=== PATIENT | female | born 1985 | race Caucasian/White ===

== ENCOUNTER 2019-09-05 11:32 | Outpatient (CLI) | payer OTHER ==
--- NOTE | 2019-09-05 14:47 | MRI ---
MRI RIGHT KNEE PERFORMED WITHOUT CONTRAST ENHANCEMENT: Date: 09/05/2019 HISTORY: Medial and central knee pain after injury playing basketball a week ago. History of three previous kn ee surgeries. FINDINGS: The anterior, as well as posterior cruciate ligaments are intact. There is some increased signal fischer ge within the free edge of the body of the lateral meniscus. This could represent a small free edge t ear or possibly be the sequelae of previous meniscectomy change. On the medial side, there is a small free edge tear of the posterior horn of the medial meniscus, adama se to the meniscal root. Again, it is possible if the patient has had meniscectomy change that this i s postoperative change, but the free edge is mildly blunted in this region. The medial, as well as lateral collateral ligaments and iliotibial band regions are unremarkable. Patellar articular cartilage is intact. The medial and lateral patellar retinaculum, and quadriceps t endon are normal. There is some patellar tendinosis of the patella at the inferior pole of the patell a. There are postoperative changes with hardware placed at the level of the tibial tubercle. IMPRESSION: 1. Some increased signal change within the body of the lateral meniscus along the free edge. This co uld represent a small tear, somewhat atypical in appearance for a tear and my just represent previous surgical change. 2. Slightly blunted appearance to the posterior horn of the medial meniscus near the meniscal root. Again, this could be related to previous meniscal surgery or possibly a small free edge tear. 3. Patellar tendinosis. POS: ELISABETH
== END 2019-09-05 11:33 | disposition home or self-care (01) ==
LOC: BICMRI 11:32
PROVIDERS: ATTEND Orthopaedic Surgery
DX: M23.91 Unspecified internal derangement of right knee (principal); M67.961 Unspecified disorder of synovium and tendon, right lower leg

== ENCOUNTER 2019-09-30 15:41 | Outpatient (CLI) | payer OTHER ==
[2019-09-30 17:34] LABS: BHCG - Serum Negative (NEGATIVE); Pregs Control Background? CLEAR/WHITE (CLR/WHITE); Pregs Control Bar Appear? YES (CONTROL BAR)
== END 2019-09-30 15:42 | disposition home or self-care (01) ==
LOC: LABBT 15:41
PROVIDERS: ATTEND Orthopaedic Surgery
DX: Z01.812 Encounter for preprocedural laboratory examination (principal); M23.91 Unspecified internal derangement of right knee
CPT/HCPCS: 84703

== ENCOUNTER 2019-10-01 07:56 | Day surgery (SDC) | payer OTHER ==
--- NOTE | 2019-09-30 09:58 | HP ---
HISTORY OF PRESENT ILLNESS: The patient is a 34-year-old female, who injured her knee several weeks ago playing basketball with her son. She has had persistent pain and swelling despite rest, restriction of activities, and a previous cortisone injection. The patient has had previous problems with hernias, had 3 arthroscopic surgeries and 1 lateral release for patellofemoral malalignment. Most recent surgery was 15 years ago and she has been doing well since that time until her recent injury. PAST MEDICAL HISTORY: The patient is otherwise in good health. 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 CURRENT MEDICATIONS: Include, 1. Zoloft. 2. Xanax. 3. Vyvanse. 4. Sertraline. ALLERGIES: SHE HAS NO KNOWN ALLERGIES. FAMILY HISTORY: Otherwise unremarkable. SOCIAL HISTORY: Otherwise unremarkable. REVIEW OF SYSTEMS: Otherwise unremarkable. PHYSICAL EXAMINATION: GENERAL: Healthy female. HEENT: Unremarkable. NECK: Supple. CHEST: Clear. HEART: Regular rate and rhythm. ABDOMEN: Soft, nontender. PELVIC: Deferred. RECTAL: Deferred. BREAST: Deferred. EXTREMITIES: Pertinent findings related to the right knee, there is puffiness, but no definite effusion. There is normal alignment. There are healed arthroscopy puncture wounds and a healed anterior scar over the parapatellar area. There is medial joint line tenderness. Range of motion is 0 to 135 degrees. There is pain with further flexion. There is pain with Glo's maneuver, but no definite crepitus. Neurovascular exam is intact. There is no instability despite right antalgic gait. IMAGING STUDIES: X-rays of the right knee were normal. There is a screw in the tibial tubercle consistent with a probable patellar tendon transfer. MRI scan of the right knee reveals an increased signal in the lateral meniscus. This is with a possible nondisplaced tear. There is a possible tear in the posterior horn of the medial meniscus. There is a change from previous surgery. There is some patellar tendinosis. IMPRESSION: Internal derangement of right knee. Possible recurrent medial and/or lateral meniscal tears, possible component of degenerative joint disease. PLAN: Arthroscopy right knee with partial meniscectomy and/or debridement and shaving. The nature of the surgery, length of recovery, and potential complications such as infection, loss of motion, incomplete relief, thromboembolic phenomena, neurovascular injury, posttraumatic degenerative arthritis, recurrent tear, need for additional treatment, repeat surgery have been discussed in detail. Job ID: [id number]
[2019-09-30 15:52] VITALS: BMI 28.3
[2019-10-01] MEDS ORDERED: Ketorolac Tromethamine 30 MG/ML VIAL ONE (09:15)
[2019-10-01] MEDS ORDERED: Metoclopramide HCl 10 MG/2 ML VIAL ONE (09:15)
[2019-10-01] MEDS ORDERED: Dexamethasone 20 MG/5 ML VIAL ONE (09:15)
[2019-10-01] MEDS ORDERED: Ondansetron PF 4 MG/2 ML Vial ONE (09:15)
[2019-10-01] MEDS ORDERED: PROPOFOL 200 MG/20 ML VIAL ONE (09:15)
[2019-10-01] MEDS ORDERED: Lidocaine 1% PF 5 ML VIAL ONE (09:15)
[2019-10-01] MEDS ORDERED: Fentanyl 100 MCG/2 ML VIAL ONE ×3 (10:10→11:36)
[2019-10-01] MEDS ORDERED: Lidocaine 1% w/Epinephrine 1:100K 20 ML VIAL ONE (10:15)
[2019-10-01] MEDS ORDERED: Bupivacaine 0.25% HCL 30 ML VIAL ONE (10:15)
--- NOTE | 2019-10-01 11:46 | OP ---
DATE OF PROCEDURE: 10/01/2019 PREOPERATIVE DIAGNOSIS: Internal derangement of right knee with possible new versus recurrent meniscal tear. POSTOPERATIVE DIAGNOSES: 1. Recurrent tear of posterior horn of medial meniscus. 2. Probable new free edge radial tear of lateral meniscus. 3. Early degenerative joint disease. ANESTHESIA: General. OPERATIVE FINDINGS: Examination under anesthesia revealed the knee to be stable. At arthroscopy, the patellofemoral joint was normal. There was good patellar tracking. Examination of the medial compartment revealed that the posterior horn was smaller than normal and it appeared to have a previous partial meniscectomy. There appeared to be new tearing of the mid and posterior horn portion with a small flap component and also horizontal cleavage tearing and remainder of the posterior meniscus. There was early degenerative changes of the weightbearing surface of the medial femoral condyle, but no areas needing shaving. The ACL was intact. There was a small radial tear at the midportion of the lateral meniscus. On the lateral tibial plateau, there was a linear fissuring moving from anterior to posterior along the mid aspect of the weightbearing surface of the lateral tibial plateau. This probed approximately 1 mm in depth. It appeared to be stable. I could not tell this was degenerative change or could be the result of trauma or impaction. I left this as is to hopefully heal on its own. DESCRIPTION OF PROCEDURE: After satisfactory anesthesia was induced in supine position, the patient was placed in a leg mcknight and then prepped and draped in the routine manner. The right leg was elevated and exsanguinated with an Esmarch bandage and the tourniquet inflated to 250 mmHg. Mendez arthroscope was introduced through an anterolateral portal, probed through the anteromedial portal and inflow and outflow accomplished through the scope using a [email or web address] arthroscopy pump. Arthroscopy was carried out and the above findings were noted. All findings were documented with video printer and hard copies were made. Intermittently, instruments and scope were interchanged within the anteromedial and anterolateral portals from this visualization. The medial meniscus was debrided with use of basket forceps and motorized shaver. The inferior leaflet where the posterior horn horizontal cleavage tear was debrided, leaving the superior leaflet intact. Remaining rim was debrided and saucerized and found to be stable. There were still intact rim of several millimeters. The lateral meniscus was debrided with a motorized shaver and the bulk of the meniscus was intact to probing. The knee was then copiously irrigated through the scope and all instruments were withdrawn. 30 mL of a mixture of 0.25% Marcaine and 1% lidocaine with epinephrine was instilled into the knee joint and additional 10 mL injected about the portal sites. The portal sites were closed with 3-0 nylon and sterile bulky compressive dressing was applied. The tourniquet was deflated after 22 minutes. The foot promptly pinked up and the patient was awakened and taken to the recovery room in stable condition. There were no apparent intraoperative complications. The estimated blood loss was negligible. The patient will be discharged home in satisfactory condition, instructed on ice and elevation, use of crutches, home exercise program by the Physical Therapy Department. She was given written wound care instructions and a prescription for [place] 7.5 for pain, 24 tablets. She will be rechecked in my office in approximately 1 week or sooner if there are any problems prior to that time. Job ID: [id number]
[2019-10-01] MEDS ORDERED: HYDROcodone/Acetaminophen 7.5/325 mg Tablet ONE (12:15)
== END 2019-10-01 13:30 | disposition home or self-care (01) ==
LOC: SDC 07:56
PROVIDERS: ATTEND Orthopaedic Surgery
PROC: 0SBC4ZZ Excision of Right Knee Joint, Percutaneous Endoscopic Approach (ICD-10-PCS; principal; 2019-10-01)
DX: S83.241A Other tear of medial meniscus, current injury, right knee, initial encounter (principal); S83.281A Other tear of lateral meniscus, current injury, right knee, initial encounter; M17.31 Unilateral post-traumatic osteoarthritis, right knee; M76.51 Patellar tendinitis, right knee; Z79.899 Other long term (current) drug therapy
CPT/HCPCS: J0690; J1100; J1885; J2001; J2405; J2704; J2765; J3010; S0020